=== PATIENT | male | born 1960 | race Caucasian/White ===

== ENCOUNTER 2017-09-19 19:06 | Emergency (ER) | payer SELFPAY ==
[~2017-09-19] VITALS: Ht 165.1 cm; Wt 65.8 kg
[~2017-09-19 19:06] MED LIST: ALBU6.7H IH; ASEN10TA9 SL; DEXL60CA2 PO; FOLI1TAB16 PO; METO25TA4 PO; SUCR1TAB35 PO; THIA100T8 PO; VORT10TA PO
[2017-09-19] MEDS ORDERED: methylPREDNISolone SOD SUCC PF 125 MG/2 ML VIAL. IV ONE (19:30)
[2017-09-19] MEDS ORDERED: IPRATRPIUM/ALBUTEROL 0.5/2.5MG 3 ML NEBU. NEB ONE (19:30)
[2017-09-19] MEDS ORDERED: IOHEXOL 300 MG/ML 75 ML VIAL. IV ONE (19:45)
[2017-09-19 19:57] LABS: BASO # 0.1 x10^3/uL (0.0-0.2); BASO % 1 % (0-3); EOS # 0.1 x10^3/uL (0.0-0.7); EOS % 1 % (0-3); HEMATOCRIT 39.6 % (39.0-53.0); HEMOGLOBIN 13.6 g/dL (13.0-17.5); LYMPH # 1.8 x10^3/uL (1.0-4.8); LYMPH % 21 % (24-48); MEAN CORPUSCULAR HEMOGLOBIN 31 pg (25-35); MEAN CORPUSCULAR HGB CONC 34 g/dL (31-37); MEAN CORPUSCULAR VOLUME 91 fL (79-100); MONO # 1.1 x10^3/uL (0.0-1.1); MONO % 13 % (0-9); NEUT # 5.3 x10^3uL (1.8-7.7); NEUT % 64 % (31-73); PLATELET COUNT 258 x10^3/uL (140-400); RED BLOOD COUNT 4.37 x10^6/uL (4.30-5.70); RED CELL DISTRIBUTION WIDTH 16.4 % (11.5-14.5); WHITE BLOOD COUNT 8.3 x10^3/uL (4.0-11.0)
[2017-09-19 20:23] LABS: ALBUMIN 3.8 g/dL (3.4-5.0); CALCIUM 9.5 mg/dL (8.5-10.1); GFR 76.7; POTASSIUM 4.1 mmol/L (3.5-5.1); TOTAL BILIRUBIN 0.3 mg/dL (0.2-1.0); TOTAL PROTEIN 7.8 g/dL (6.4-8.2)
--- NOTE | 2017-09-19 20:31 | PHYS DOC ---
Past History Past Medical History: Alcoholism, COPD, Depression, GERD, Hypertension, Hepatitis, Other Past Surgical History: Other Alcohol Use: Heavy Drug Use: None Adult General Chief Complaint Chief Complaint: SHORTNESS OF BREATH HPI HPI 57-year-old male patient with history of smoking and COPD states he was diagnosed with left lung mass 2 years ago and didn't follow-up with a physician. Patient complaining of chronic cough that getting worse for the last few days with clear and white sputum. Patient complaining of hemoptysis since last night that gradually getting worse. Patient complaining of shortness of breath and subjective fever and chills and losing weight. Patient is a poor historian. Review of Systems Review of Systems Constitutional: Reports subjective fever and chills[] Eyes: Denies change in visual acuity, redness, or eye pain [] HENT: There is a congestion and sore throat Respiratory: Reports cough and shortness of breath Cardiovascular: No additional information not addressed in HPI [] GI: Denies abdominal pain, bloody stools or diarrhea , reports nausea and vomiting after cough[] : Denies dysuria or hematuria [] Musculoskeletal: Denies back pain or joint pain [] Integument: Denies rash or skin lesions [] Neurologic: Denies headache, focal weakness or sensory changes [] Endocrine: Denies polyuria or polydipsia [] All other systems were reviewed and found to be within normal limits, except as documented in this note. Current Medications Current Medications Current Medications Medications (Trade) Dose Ordered Sig/Bo Start Time Stop Time Status Last Admin Dose Admin Albuterol/ Ipratropium (Duoneb) 3 ml 1X ONCE 09/19/17 19:30 09/19/17 19:32 DC 09/19/17 19:47 3 ML Iohexol (Omnipaque 300 Mg/ml) 75 ml 1X ONCE 09/19/17 19:45 09/19/17 19:46 DC 09/19/17 20:09 75 ML Methylprednisolone Sodium Succinate (SOLU-Medrol 125MG VIAL) 125 mg 1X ONCE 09/19/17 19:30 09/19/17 19:32 DC Allergies Allergies Allergies Coded Allergies Type Severity Reaction Last Updated Verified No Known Drug Allergies 03/06/15 No Physical Exam Physical Exam Constitutional: Moderate distress, non-toxic appearance, smell of alcohol on breath. [] HENT: Normocephalic, atraumatic, bilateral external ears normal, oropharynx moist, no oral exudates, nose normal. [] Eyes: PERRLA, EOMI, conjunctiva normal, no discharge. [] Neck: Normal range of motion, no tenderness, supple, no stridor. [] Cardiovascular: Tachycardia, no murmur [] Lungs & Thorax: Tachypnea with bibasilar arthritis and coughing dark bloody sputum Abdomen: Bowel sounds normal, soft, no tenderness, no masses, no pulsatile masses. [] Skin: Warm, dry, no erythema, no rash. [] Back: No tenderness, no CVA tenderness. [] Extremities: No tenderness, no cyanosis, no clubbing, ROM intact, no edema. [] Neurologic: Alert and oriented X 3, normal motor function, normal sensory function, no focal deficits noted. [] Psychologic: Affect anxious Current Patient Data Vital Signs Vital Signs Date Time Temp Pulse Resp B/P (MAP) Pulse Ox O2 Delivery O2 Flow Rate FiO2 09/19/17 19:48 98 Room Air 09/19/17 19:43 77 24 119/60 (79) 09/19/17 19:10 98.7 Lab Results Laboratory Tests Test 09/19/17 19:35 White Blood Count 8.3 x10^3/uL (4.0-11.0) Red Blood Count 4.37 x10^6/uL (4.30-5.70) Hemoglobin 13.6 g/dL (13.0-17.5) Hematocrit 39.6 % (39.0-53.0) Mean Corpuscular Volume 91 fL (79-100) Mean Corpuscular Hemoglobin 31 pg (25-35) Mean Corpuscular Hemoglobin Concent 34 g/dL (31-37) Red Cell Distribution Width 16.4 % (11.5-14.5) H Platelet Count 258 x10^3/uL (140-400) Neutrophils (%) (Auto) 64 % (31-73) Lymphocytes (%) (Auto) 21 % (24-48) L Monocytes (%) (Auto) 13 % (0-9) H Eosinophils (%) (Auto) 1 % (0-3) Basophils (%) (Auto) 1 % (0-3) Neutrophils # (Auto) 5.3 x10^3uL (1.8-7.7) Lymphocytes # (Auto) 1.8 x10^3/uL (1.0-4.8) Monocytes # (Auto) 1.1 x10^3/uL (0.0-1.1) Eosinophils # (Auto) 0.1 x10^3/uL (0.0-0.7) Basophils # (Auto) 0.1 x10^3/uL (0.0-0.2) Lactic Acid Level 2.6 mmol/L (0.4-2.0) H Troponin I Quantitative < 0.017 ng/mL (0-0.055) EKG EKG EKG interpreted by me. EKG at 1937 showed normal sinus rhythm at rate of 82, no acute extremity abnormalities.[] Radiology/Procedures Radiology/Procedures [][address] [address] IMAGING REPORT Signed PATIENT: LORI MULLINS ACCOUNT: [id number] : 1960 LOCATION: ER AGE: 57 SEX: M EXAM STATUS: PRE ER ORD. PHYSICIAN: VIDAL CAIN MD REASON: Shortness of breath, intoxication PROCEDURE: CT ANGIOGRAPHY CHEST PQRS Compliance Statement: One or more of the following individualized dose reduction techniques were utilized for this examination: 1. Automated exposure control 2. Adjustment of the mA and/or kV according to patient size 3. Use of iterative reconstruction technique CT angiography chest with contrast 09/19/2017 7:26 PM INDICATION: Shortness of breath COMPARISON: None available TECHNIQUE: Axial CT images of the chest were obtained after the intravenous administration of 75 cc Omnipaque 300. Coronal and sagittal reformats are provided. Maximum intensity projection images of the thoracic vasculature are provided. FINDINGS: The thyroid gland is normal in appearance. There are no pathologically enlarged axillary, mediastinal or hilar lymph nodes. The heart size is within normal limits. Trace pericardial fluid is present, likely physiologic. Thoracic aorta is normal in course and caliber. There is a moderate-sized hiatal hernia. There is masslike thickening at the gastroesophageal junction involving the distal one third of the esophagus. There may be paraesophageal varices or lymph nodes. There is adequate opacification of the pulmonary arterial system. There there are no filling defects within the pulmonary arterial system to suggest acute or chronic pulmonary embolus. 4 mm solid noncalcified pulmonary nodule is identified along the left major fissure (series 4, image 66). There are no pulmonary infiltrates. There are no pleural effusions. No pulmonary vascular congestion or pneumothorax. There is diffuse hepatic steatosis. No suspicious osseous lesions are identified. Minimal free fluid is noted in the upper abdomen. IMPRESSION: There is no evidence for acute or chronic pulmonary embolism. There is masslike thickening at the distal one third of the esophagus which may reflect a moderate hiatal hernia versus distal esophageal mass. There may be esophageal varices versus lymphadenopathy. Correlation with direct visualization may be of benefit. Fluid is identified posterior to the stomach adjacent to the spleen. Nonspecific 4 mm solid noncalcified pulmonary nodule is noted along the left major fissure. Electronically signed by: Magen Nash MD (09/19/2017 8:45 PM) [facility] DICTATED AND SIGNED BY: MAGEN NASH MD DATE: 09/19/172037 CC: VIDAL CAIN MD; PCP,NO ~ Course & Med Decision Making Course & Med Decision Making Pertinent Labs and Imaging studies reviewed. (See chart for details) Evaluation of patient in ER showed 57-year-old male patient complaining of hemoptysis and shortness of breath. Patient was afebrile but had tachycardia and are calling his breath. Labs showed blood of 320 and lactic acid of 2.6. Patient treated with IV fluid, vancomycin, Rocephin. CT of chest did not show lung mass or PE or infiltrate. Because of hemoptysis and history of alcohol abuse and COPD with chronic cough plan to transfer patient to [facility]. Dr. Iyer accepted admission at 2005. Dragon Disclaimer Dragon Disclaimer This electronic medical record was generated, in whole or in part, using a voice recognition dictation system. Departure Departure: Impression: Primary Impression: Hemoptysis Additional Impressions: Alcohol abuse Elevated lactic acid level COPD exacerbation Lung nodule seen on imaging study Disposition: XFER SHT-TRM HOSP ([facility] 2005) Condition: IMPROVED Referrals: PCP,NO (PCP) Problem Qualifiers VIDAL CAIN MD Sep 19, 2017 20:31
--- NOTE | 2017-09-19 20:49 | RAD ---
PQRS Compliance Statement: One or more of the following individualized dose reduction techniques were utilized for this examination: 1. Automated exposure control 2. Adjustment of the mA and/or kV according to patient size 3. Use of iterative reconstruction technique CT angiography chest with contrast 09/19/2017 7:26 PM INDICATION: Shortness of breath COMPARISON: None available TECHNIQUE: Axial CT images of the chest were obtained after the intravenous administration of 75 cc Omnipaque 300. Coronal and sagittal reformats are provided. Maximum intensity projection images of the thoracic vasculature are provided. FINDINGS: The thyroid gland is normal in appearance. There are no pathologically enlarged axillary, mediastinal or hilar lymph nodes. The heart size is within normal limits. Trace pericardial fluid is present, likely physiologic. Thoracic aorta is normal in course and caliber. There is a moderate-sized hiatal hernia. There is masslike thickening at the gastroesophageal junction involving the distal one third of the esophagus. There may be paraesophageal varices or lymph nodes. There is adequate opacification of the pulmonary arterial system. There there are no filling defects within the pulmonary arterial system to suggest acute or chronic pulmonary embolus. 4 mm solid noncalcified pulmonary nodule is identified along the left major fissure (series 4, image 66). There are no pulmonary infiltrates. There are no pleural effusions. No pulmonary vascular congestion or pneumothorax. There is diffuse hepatic steatosis. No suspicious osseous lesions are identified. Minimal free fluid is noted in the upper abdomen. IMPRESSION: There is no evidence for acute or chronic pulmonary embolism. There is masslike thickening at the distal one third of the esophagus which may reflect a moderate hiatal hernia versus distal esophageal mass. There may be esophageal varices versus lymphadenopathy. Correlation with direct visualization may be of benefit. Fluid is identified posterior to the stomach adjacent to the spleen. Nonspecific 4 mm solid noncalcified pulmonary nodule is noted along the left major fissure. Electronically signed by: Gaviota Julio MD (09/19/2017 8:45 PM) [facility]
[2017-09-19] MEDS ORDERED: VANCOMYCIN 1 GM in IV NORMAL SALINE 250ML 250 ML IV ONE (21:00)
[2017-09-19] MEDS ORDERED: VANCOMYCIN 1.75 GM in IV NORMAL SALINE 500ML 500 ML IV ONE (21:00)
[2017-09-19] MEDS ORDERED: cefTRIAXone IV Push 1 GM VIAL. IVP ONE (21:00)
[2017-09-19] MEDS ORDERED: IV NORMAL SALINE 1,000ML 1,000 ML IV ONE (21:00)
[2017-09-19 21:04] LABS: BARBITURATES NEG (NEG); BENZODIAZEPINES NEG (NEG); CANNABINOIDS NEG (NEG); COCAINE NEG (NEG); METHADONE NEG (NEG); OPIATES NEG (NEG); PHENCYCLIDINE NEG (NEG)
[2017-09-19 21:05] LABS: AMPHETAMINE/METHAMPHETAMINE NEG (NEG)
[2017-09-19] MEDS ORDERED: IV NORMAL SALINE 500ML 500 ML ONE (21:24)
[2017-09-19] MEDS ORDERED: VANCOMYCIN 1 GM VIAL. ONE ×2 (21:24→21:35)
[2017-09-19 21:26] LABS: BACTERIA,URINE 0 /HPF (0-FEW); BILIRUBIN,URINE NEG (NEG); CLARITY,URINE CLEAR; COLOR,URINE YELLOW; GLUCOSE,URINE NEG (NEG); NITRITE,URINE NEG (NEG); RBC,URINE 0 /HPF (0-2); SQUAMOUS EPITHELIAL CELL,UR FEW /LPF; UROBILINOGEN,URINE 0.2 mg/dL (0.2 mg/dL); WBC,URINE 0 /HPF (0-4)
[2017-09-19 21:54] VITALS: BP 117/46
--- NOTE | 2017-09-20 06:54 | EKG ---
[address] [address] Test Date: 2017-09-19 Test Time: 19:37:02 Pat Name: [facility] Department: Room: Gender: M Career Technical Supervisor: : 1960 Requested By: VIDAL CAIN Order Number: [id number] Reading MD: Measurements Intervals [place] Rate: 82 P: 51 CA: 132 QRS: 2 QRSD: 94 T: 23 QT: 350 QTc: 412 Interpretive Statements SINUS RHYTHM NO SPECIFIC ECG ABNORMALITIES RI6.01 Unconfirmed report No previous ECG available for comparison
== END 2017-09-19 22:31 | disposition short-term general hospital (02) ==
LOC: ER 19:06
DX: J44.1 Chronic obstructive pulmonary disease with (acute) exacerbation (principal); R04.2 Hemoptysis; R11.2 Nausea with vomiting, unspecified; R91.1 Solitary pulmonary nodule; F10.20 Alcohol dependence, uncomplicated; F32.9 Major depressive disorder, single episode, unspecified; K21.9 Gastro-esophageal reflux disease without esophagitis; I10 Essential (primary) hypertension; R74.0 Nonspecific elevation of levels of transaminase and lactic acid dehydrogenase [LDH]
CPT/HCPCS: 36415; 71275; 80053; 80307; 81001; 82553; 83605; 83880; 84484; 85025; 85610; 85730; 87040; 93005; 94640; 96361; 96365; 96375; 99285; G0480; J0696; J2930; J3370; J7040; J7620; Q9967; G0479; J7030

== ENCOUNTER 2018-04-21 14:10 | Emergency (ER) | payer SELFPAY ==
[~2018-04-21] VITALS: Ht 165.1 cm; Wt 68.0 kg
[~2018-04-21 14:10] MED LIST changes: +ALBU2.5V8 IH; -ALBU6.7H IH
[2018-04-21] MEDS ORDERED: IV NORMAL SALINE 1,000ML 1,000 ML IV ONE (14:30)
--- NOTE | 2018-04-21 14:38 | PHYS DOC ---
Past History Past Medical History: Alcoholism, COPD, Depression, GERD, Hypertension, Hepatitis, Other Past Surgical History: Other Alcohol Use: Heavy Drug Use: None Adult General Chief Complaint Chief Complaint: NAUSEA/VOMITING/DIARRHEA HPI HPI 57-year-old male presents with 2 day history of vomiting. The patient has seen blood in the vomit. He had an EGD 3 days ago where he was only found a couple of masses. They took biopsies at that time. Starting yesterday, the patient has had vomiting and has been unable to keep anything down. He has been unable to take his blood pressure medication. He is now quite hypertensive. He is feeling weak overall. There is blood in the vomit, but it is not all blood. He denies fever or chills. He was not placed on any PPI after his EGD. Review of Systems Review of Systems Constitutional: Denies fever or chills [] Eyes: Denies change in visual acuity, redness, or eye pain [] HENT: Denies nasal congestion or sore throat [] Respiratory: Cough with shortness of breath[] Cardiovascular: No additional information not addressed in HPI [] GI: Epigastric abdominal pain, nausea, vomiting. Denies bloody stools or diarrhea [] : Denies dysuria or hematuria [] Musculoskeletal: Denies back pain or joint pain [] Integument: Denies rash or skin lesions [] Neurologic: Denies headache, focal weakness or sensory changes [] Endocrine: Denies polyuria or polydipsia [] All other systems were reviewed and found to be within normal limits, except as documented in this note. Current Medications Current Medications Current Medications Medications (Trade) Dose Ordered Sig/[facility] Start Time Stop Time Status Last Admin Dose Admin Clonidine HCl (Catapres) 0.2 mg 1X ONCE 04/21/18 14:45 04/21/18 14:46 Ondansetron HCl (Zofran) 4 mg 1X ONCE 04/21/18 14:45 04/21/18 14:46 Pantoprazole Sodium (Protonix Vial) 80 mg 1X ONCE 04/21/18 14:45 04/21/18 14:46 Sodium Chloride 1,000 ml @ 1,000 mls/hr 1X ONCE 04/21/18 14:30 04/21/18 15:29 Allergies Allergies Allergies Coded Allergies Type Severity Reaction Last Updated Verified No Known Drug Allergies 03/06/15 No Physical Exam Physical Exam Constitutional: Well developed, well nourished, no acute distress, non-toxic appearance. [] HENT: Normocephalic, atraumatic, bilateral external ears normal, oropharynx moist, no oral exudates, nose normal. [] Eyes: PERRLA, EOMI, conjunctiva normal, no discharge. [] Neck: Normal range of motion, no tenderness, supple, no stridor. [] Cardiovascular:Heart rate regular rhythm, no murmur [] Lungs & Thorax: Bilateral breath sounds clear to auscultation [] Abdomen: Epigastric tenderness[] Skin: Warm, dry, no erythema, no rash. [] Back: No tenderness, no CVA tenderness. [] Extremities: No tenderness, no cyanosis, no clubbing, ROM intact, no edema. [] Neurologic: Alert and oriented X 3, normal motor function, normal sensory function, no focal deficits noted. [] Psychologic: Affect normal, judgement normal, mood normal. [] Current Patient Data Vital Signs Vital Signs Date Time Temp Pulse Resp B/P (MAP) Pulse Ox O2 Delivery O2 Flow Rate FiO2 04/21/18 14:29 98.2 104 18 98 Room Air EKG EKG [] Radiology/Procedures Radiology/Procedures [] Course & Med Decision Making Course & Med Decision Making Pertinent Labs and Imaging studies reviewed. (See chart for details) [] Dragon Disclaimer Dragon Disclaimer This electronic medical record was generated, in whole or in part, using a voice recognition dictation system. Departure Departure: Impression: Primary Impression: Abdominal mass Additional Impressions: Hematemesis Epigastric abdominal pain Disposition: 01 HOME, SELF-CARE Condition: IMPROVED Referrals: PCP,NO (PCP) Patient Instructions: Hematemesis Scripts Ondansetron (ONDANSETRON ODT) 4 Mg Tab.rapdis 1 TAB PO PRN Q6-8HRS PRN for VOMITING, #16 TAB Prov: JERED KEARNS DO 04/21/18 Hydrocodone Bit/Acetaminophen (NORCO 5-325 TABLET) 1 Each Tablet 1 TAB PO PRN Q6HRS PRN for PAIN, #14 TAB 0 Refills Prov: JERED KEARNS DO 04/21/18 Problem Qualifiers Primary Impression: Abdominal mass Abdominal location: epigastric Qualified Codes: R19.06 - Epigastric swelling , mass or lump Additional Impressions: Hematemesis Nausea presence: with nausea Qualified Codes: K92.0 - Hematemesis JERED KEARNS DO Apr 21, 2018 14:38
[2018-04-21 14:43] LABS: BASO # 0.1 x10^3/uL (0.0-0.2); BASO % 0 % (0-3); EOS % 0 % (0-3); HEMATOCRIT 42.1 % (39.0-53.0); HEMOGLOBIN 14.4 g/dL (13.0-17.5); LYMPH # 1.1 x10^3/uL (1.0-4.8); LYMPH % 6 % (24-48); MEAN CORPUSCULAR HEMOGLOBIN 31 pg (25-35); MEAN CORPUSCULAR HGB CONC 34 g/dL (31-37); MEAN CORPUSCULAR VOLUME 90 fL (79-100); MONO # 0.9 x10^3/uL (0.0-1.1); MONO % 5 % (0-9); NEUT # 14.6 x10^3uL (1.8-7.7); NEUT % 88 % (31-73); PLATELET COUNT 456 x10^3/uL (140-400); RED BLOOD COUNT 4.69 x10^6/uL (4.30-5.70); RED CELL DISTRIBUTION WIDTH 13.9 % (11.5-14.5); WHITE BLOOD COUNT 16.6 x10^3/uL (4.0-11.0)
[2018-04-21] MEDS ORDERED: ONDANSETRON PF 4 MG/2 ML VIAL. IV ONE (14:45)
[2018-04-21] MEDS ORDERED: cloNIDine HCL 0.1 MG TABLET PO ONE (14:45)
[2018-04-21] MEDS ORDERED: PANTOPRAZOLE IV 40 MG VIAL. IVP ONE (14:45)
[2018-04-21 14:51] LABS: ALBUMIN 4.2 g/dL (3.4-5.0); CALCIUM 10.3 mg/dL (8.5-10.1); CREATININE 1.2 mg/dL (0.7-1.3); GFR 62.2; POTASSIUM 3.4 mmol/L (3.5-5.1); TOTAL BILIRUBIN 0.5 mg/dL (0.2-1.0); TOTAL PROTEIN 8.5 g/dL (6.4-8.2)
[2018-04-21 15:09] LABS: GASTRIC OB PAT POSITIVE (NEG)
[2018-04-21] MEDS ORDERED: IOHEXOL 300 MG/ML 75 ML VIAL. IV ONE (16:30)
[2018-04-21] MEDS ORDERED: HYDROmorphone PF 1 MG/ML DISP.SYRIN IV ONE (16:30)
--- NOTE | 2018-04-21 18:07 | RAD ---
CT scan of the abdomen and pelvis with contrast 04/21/2018 CLINICAL HISTORY: Abdominal, vomiting and hematemesis. TECHNIQUE: After the intravenous administration of 75 cc of Omnipaque 300, contiguous, 5 mm axial sections were obtained through the abdomen and pelvis. One or more of the following individualized dose reduction techniques were utilized for this study: 1. Automated exposure control. 2. Adjustment of the mA and/or kV according to patient size. 3. Use of iterative reconstruction technique. FINDINGS: Images through the lung bases demonstrate minimal dependent subsegmental atelectasis bilaterally. A large irregular mass is seen involving the visualized portions of the distal thoracic esophagus extending to the GE junction/gastric cardia. The superior extent of this mass is not included on this study. This mass measures at least 13 x 8.8 x 5.3 cm in craniocaudal, transverse and AP dimensions. This is concerning for a neoplastic process enlarged. Surrounding lymph nodes are seen within the inferior mediastinum and upper abdomen. These measure 1 to 2 cm in size. The liver, pancreas, adrenal glands and kidneys are within normal limits. A 1 cm rounded low-attenuation lesion is seen involving the inferior aspect of the spleen which likely represents a cyst. Atherosclerotic calcification abdominal aorta and its branches is noted. The abdominal aorta tapers normally. The gallbladder is slightly contracted. No free fluid or free air is seen within the abdomen. There is no evidence of bowel obstruction. Prominent retroperitoneal lymph nodes are seen which measure 1 to 2.1 cm in size. Images through the pelvis demonstrate the urinary bladder distended with urine. Calcifications are seen within the pelvis consistent with phleboliths. No free fluid is seen. Diverticula are seen involving the sigmoid colon. No inflammatory changes are seen in the adjacent fat. Degenerative changes are seen involving lower thoracic and throughout the lumbar spine and both hips. IMPRESSION: A large irregular mass is seen involving the visualized portions of the distal thoracic esophagus extending to the GE junction/gastric cardia. This measures at least 13 cm in greatest diameter. It is concerning for a neoplastic process (esophageal carcinoma, etc.). Electronically signed by: Enmanuel Medrano MD (04/21/2018 6:04 PM) [facility]
[2018-04-21] MEDS ORDERED: HYDR-3165 PO (18:20)
[2018-04-21] MEDS ORDERED: ONDA4TAB12 PO (18:20)
[2018-04-21 18:40] VITALS: BP 168/87
[2018-04-21] MEDS ORDERED: HYDROcodone/APAP 5/325MG 1 TAB TABLET PO ONE (19:00)
[2018-04-21 21:34] LABS: % LYMPHS 8 % (24-48); % MONOS 6 % (0-10); % SEGS 86 % (35-66); PLT ESTIMATE INCREASED (ADEQUATE); POLYCHROMASIA SLIGHT
== END 2018-04-21 18:53 | disposition home or self-care (01) ==
LOC: ER 14:10
DX: R19.06 Epigastric swelling, mass or lump (principal); K92.0 Hematemesis; R11.2 Nausea with vomiting, unspecified; J44.9 Chronic obstructive pulmonary disease, unspecified; F32.9 Major depressive disorder, single episode, unspecified; K21.9 Gastro-esophageal reflux disease without esophagitis; I10 Essential (primary) hypertension; F10.20 Alcohol dependence, uncomplicated; Y90.9 Presence of alcohol in blood, level not specified
CPT/HCPCS: 36415; 74177; 80053; 82271; 83690; 85007; 85025; 96361; 96374; 96375; 99284; C9113; J1170; J2405; Q9967; J7030

== ENCOUNTER → 2019-02-03 | Outpatient (CLI) | payer OTHER ==
[~2019-02-03] MED LIST changes: +HYDR-3165 PO; +ONDA4TAB12 PO
--- NOTE | 2019-02-03 11:09 | RAD ---
Complete abdomen ultrasound study Clinical indications: Abdominal pain. COMPARISON: CT study of the abdomen dated April 21, 2018. FINDINGS: Midline structures including the pancreas and abdominal aorta and IVC are poorly visualized due to overlying bowel gas. The intrahepatic portion IVC is patent. No focal aneurysmal dilatation of the distal abdominal aorta is seen. The liver measures 14.5 centers in length which is normal. No focal hepatic mass is seen otherwise. The gallbladder is normal and no gallstones are seen. The extra hepatic bile that measures 3 mm in caliber which is normal. The bridge attacher questioned possible lymph node at the gallbladder neck. This measures 13 mm. Lymph node could be seen in this area on the previous CT study and is unchanged in size. The CT study demonstrated a large distal esophageal mass extending into the gastric cardia. The length of the right kidney is 10.2 cm and the length of the left kidney is 10.4 centimeters. No hydronephrosis or renal mass or perinephric fluid collection seen on either side. The spleen measures 7.4 cm in length which is normal. No ascites is seen. IMPRESSION: No significant change in size of lymph node within the xochitl hepatis measuring 13 mm. No hepatic metastasis is seen sonographically. Normal sonographic evaluation of the gallbladder. Electronically signed by: Romulo Quach MD (02/03/2019 11:06 AM) [facility]
== END | disposition home or self-care (01) ==
LOC: PMG 09:51
PROVIDERS: ATTEND Registered Nurse
DX: R10.9 Unspecified abdominal pain (principal)
CPT/HCPCS: 76700

== ENCOUNTER → 2019-02-20 | Outpatient (CLI) | payer OTHER ==
--- NOTE | 2019-02-20 14:17 | RAD ---
PA and lateral chest x-ray compared to similar study dated June 15, 2015 for COPD. FINDINGS: There is a small chronic scar or pleural effusion at the left lung base, grossly unchanged. Calcified granuloma seen in the right upper lung. No pneumothorax, congestive heart failure, or focal parenchymal abnormalities evident. Heart size within normal limits. 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 IMPRESSION: 1. No acute cardiopulmonary abnormality. Small stable scar or pleural effusion at the left lung base. Electronically signed by: Shawn Reyna MD (02/20/2019 2:14 PM) [facility]
== END | disposition home or self-care (01) ==
LOC: PMG 13:53
PROVIDERS: ATTEND Registered Nurse
DX: J44.9 Chronic obstructive pulmonary disease, unspecified (principal); J84.10 Pulmonary fibrosis, unspecified
CPT/HCPCS: 71046

== ENCOUNTER → 2019-03-04 | Outpatient (CLI) | payer OTHER ==
[~2019-03-04] MED LIST changes: +IOHEXOL 240 MG/ML 50ML VIAL. ONE; +IOHEXOL 300 MG/ML 75 ML VIAL. IV ONE
--- NOTE | 2019-03-04 12:40 | RAD ---
PQRS Compliance Statement: One or more of the following individualized dose reduction techniques were utilized for this examination: 1. Automated exposure control 2. Adjustment of the mA and/or kV according to patient size 3. Use of iterative reconstruction technique CT abdomen/pelvis with contrast 03/04/2019 9:30 AM INDICATION: Abdominal pain COMPARISON: CT abdomen/pelvis 04/21/2018 TECHNIQUE: Multiple axial CT images of the abdomen and pelvis were obtained after the intravenous administration . Coronal and sagittal reformats are provided. FINDINGS: Lung bases are clear. Heart size is within normal limits. Liver, bilateral adrenal glands and gallbladder are normal in appearance. Interval decrease in size of a cystic lesion in the inferior spleen measuring 4.5 mm, previously measuring 10 mm, nonspecific. Calcifications within the spleen may represent sequela prior granulomatous exposure. Oral contrast was administered. Interval decrease in eccentric wall thickening involving the distal esophagus and gastroesophageal junction. Persistent cystic changes are identified along the gastric cardia with gastric collateral vascularity and esophageal varices. Moderate sigmoid diverticulosis. Opacified bowel loops demonstrate normal mucosal fold pattern. Small and large bowel are normal in caliber. There is no evidence for bowel obstruction. There are no pericolonic inflammatory changes. A normal, nondilated appendix is visualized without adjacent inflammatory changes. Portacaval lymph node has decreased in size now measuring 9 mm by short axis, previously measuring 18 mm. No new or enlarging abdominal or pelvic lymph nodes. There is a 3 mm nonobstructing calculus in interpolar left kidney. The kidneys enhance symmetrically. There is no suspicious renal mass. There is no hydronephrosis. There are no suspected calculi within the kidneys, ureters or urinary bladder. Urinary bladder is within normal limits given degree of distention. Prostate and seminal vesicles are normal in appearance. There is minimal height loss involving L1 with 25% height loss, stable from 04/21/2018. IMPRESSION: 1. Interval decreased prominence of distal esophageal eccentric wall thickening with improving gastric and esophageal varices. No new or enlarging abdominal or pelvic lymphadenopathy. 2. Decrease in size of cystic lesion in the inferior spleen previously measuring 10 mm and currently measuring 4.5 mm. Consideration may be given for metastatic lesion although cystic lesion such as lymphangioma or hemangioma may have similar appearance. No definite hepatic metastatic disease is visualized on this examination. Electronically signed by: Gaviota Julio MD (03/04/2019 12:37 PM) [place] [id number]
== END | disposition home or self-care (01) ==
LOC: CT 08:23
PROVIDERS: ATTEND Registered Nurse
DX: I85.00 Esophageal varices without bleeding (principal); K57.30 Diverticulosis of large intestine without perforation or abscess without bleeding; N20.0 Calculus of kidney; D73.89 Other diseases of spleen
CPT/HCPCS: 74177; Q9967

== ENCOUNTER → 2019-05-07 | Outpatient (CLI) | payer OTHER ==
[~2019-05-07] MED LIST changes: -IOHEXOL 240 MG/ML 50ML VIAL. ONE; -IOHEXOL 300 MG/ML 75 ML VIAL. IV ONE
--- NOTE | 2019-05-07 13:11 | RAD ---
CT chest without contrast PQRS statement: CT scans at this facility use dose reduction including either automated exposure control, iterative reconstructions, and /or weight based radiation dosing via mA and kV modification when appropriate to reduce radiation dose to as low as reasonably achievable. HISTORY: Shortness of breath. History of tobacco smoking. COMPARISON: CT chest September 19, 2017. FINDINGS: There is masslike thickening and marked stranding of the distal fat surrounding the lower esophagus leading to the gastric esophageal junction and gastric cardia and fundus where there is also upper abdominal fat stranding, this is similar however to CT imaging in February 2019 and the thickening of the esophagus has mildly decreased from older imaging in 2018. Heart size normal. Extensive left coronary calcified plaque. Pulmonary vessels and aorta are unremarkable. No enlarged adenopathy in the chest. There is mild bilateral gynecomastia. Calcified granulomas within the right chest. 2 mm medial subpleural nodule right lower lobe image 60 is new. Mild linear thickening of the right major fissure are stable likely scarring thickness of 2 mm. Mild atelectasis or scarring of the lateral basal left lower lobe adjacent diaphragm stable from February 2019, new from 2018. 2 adjacent 3 mm nodule left lower lobe near the major fissure images 61-62 are stable to 2018. 2 mm nodules left lower lobe images 51-50 to have decreased in 2018. No pleural effusions. Bones are unremarkable. Thoracic disc osteophytes. IMPRESSION: 1. No acute cardiopulmonary process. 2. Prominent wall thickening and surrounding fat stranding of the lower esophagus at the mediastinum as well as the gastroesophageal junction and gastric fundus and cardia at the upper abdomen. This is similar to CT imaging from February 2019 and has decreased relative to the study from 2018, which may indicate chronic/recurrent esophagitis or some partial treatment response for esophageal malignancy. 3. 2 mm right lower lobe pulmonary solid nodule new from prior imaging, consider optional CT follow-up in 12 months to document stability per Fleischner guidelines. Other pulmonary nodules are stable from 2018 considered benign. 4. Extensive left coronary calcified plaque. Electronically signed by: Zana Renee MD (05/07/2019 1:08 PM) [id number]
== END | disposition home or self-care (01) ==
LOC: CT 10:54
PROVIDERS: ATTEND Internal Medicine Pulmonary Disease
DX: J84.10 Pulmonary fibrosis, unspecified (principal); R91.8 Other nonspecific abnormal finding of lung field; I25.10 Atherosclerotic heart disease of native coronary artery without angina pectoris; N62 Hypertrophy of breast
CPT/HCPCS: 71250

== ENCOUNTER 2019-09-21 17:16 | Emergency (ER) | payer SELFPAY ==
[~2019-09-21] VITALS: Ht 165.1 cm; Wt 62.1 kg
[2019-09-21 17:25] VITALS: BP 139/91
--- NOTE | 2019-09-21 17:39 | RAD ---
Right hand 3 views 09/21/2019. Reason for exam: Injury. No acute fracture or dislocation is seen. There are mild arthritic changes at interphalangeal joints and MCP joints. No foreign body is seen. IMPRESSION: No identified acute abnormality. Electronically signed by: Jesus Ruiz Jr., MD (09/21/2019 5:36 PM) [facility]
--- NOTE | 2019-09-21 17:43 | PHYS DOC ---
Past History Past Medical History: Alcoholism, COPD, Depression, GERD, Hypertension, Hepatitis, Other Past Surgical History: Other Alcohol Use: Heavy Drug Use: None Adult General Chief Complaint Chief Complaint: HAND PROBLEM HPI HPI Patient is a 59-year-old male who presents with right hand pain. This occurred yesterday evening after patient punched the wall in frustration. Patient reports living in a unstable home environment full of drug activity and other illegal activity which has caused him to be frustrated and stressed out prompting him to hit wall in frustration. Patient presents today due to ongoing pain of base of right wrist. Denies any motor or sensory changes. Patient is able to perform activities of daily living but given ongoing pain, patient presented to our ED for further evaluation Review of Systems Review of Systems Fourteen body systems of review of systems have been reviewed. See HPI for pertinent positives and negative responses, other keller all other systems are negative, non-pertinent or non-contributory Allergies Allergies Allergies Coded Allergies Type Severity Reaction Last Updated Verified No Known Drug Allergies 03/06/15 No Physical Exam Physical Exam Constitutional: Well developed, well nourished, no acute distress, non-toxic appearance. [] HENT: Normocephalic, atraumatic, bilateral external ears normal, oropharynx moist, no oral exudates, nose normal. [] Eyes: PERRLA, EOMI, conjunctiva normal, no discharge. [] Neck: Normal range of motion, no tenderness, supple, no stridor. [] Cardiovascular:Heart rate regular rhythm, no murmur [] Lungs & Thorax: Bilateral breath sounds clear to auscultation [] Abdomen: Bowel sounds normal, soft, no tenderness, no masses, no pulsatile masses. [] Skin: Warm, dry, no erythema, no rash. [] Back: No tenderness, no CVA tenderness. [] Extremities: No cyanosis, no clubbing, ROM intact, no edema. Documentation below for bilateral hands unless otherwise noted Index F: FDS, FDP, extension intact with PROM against resistance. No pain on m ovement. RDN/UDN intact. 2 pt discrimination intact. CR < 2s. Soft compartment. No gross deformity. Middle F: FDS, FDP, extension intact with PROM against resistance. No pain on movement. RDN/UDN intact. 2 pt discrimination intact. CR < 2s. Soft compartment. No gross deformity Ring F: FDS, FDP, extension intact with PROM against resistance. No pain on movement. RDN/UDN intact. 2 pt discrimination intact. CR < 2s. Soft compartment. No gross deformity Short F: FDS, FDP, extension intact with PROM against resistance. No pain on movement. RDN/UDN intact. 2 pt discrimination intact. CR < 2s. Soft compartment. No gross deformity Thumb: FPL, EPL, EPB, APL intact per routine. RDN/UDN intact per routine. CR < 2s. No gross deformity. Compartments soft. Anatomical snuffbox tenderness with palpation [] Neurologic: Alert and oriented X 3, normal motor function, normal sensory function, no focal deficits noted. [] Psychologic: Affect normal, judgement normal, mood normal. [] EKG EKG [] Radiology/Procedures Radiology/Procedures PROCEDURE: HAND RIGHT 3V Right hand 3 views 09/21/2019. Reason for exam: Injury. No acute fracture or dislocation is seen. There are mild arthritic changes at interphalangeal joints and MCP joints. No foreign body is seen. IMPRESSION: No identified acute abnormality. Electronically signed by: Jesus Ruiz Jr., MD (09/21/2019 5:36 PM) [facility] Course & Med Decision Making Course & Med Decision Making Patient seen by myself on immediate ED arrival Comprehensive history and physical exam obtained, pertinent imaging studies ordered and reviewed Despite negative radiographs of right hand and wrist, great concern for potential scaphoid fracture given physical exam findings This diagnosis was discussed at length with patient with good understanding. Joint decision to treat as such with close outpatient PCP follow-up for further care Patient placed in thumb spica splint and educated on supportive care practices such as taking NSAIDs for as needed pain control, and rice Patient has previously scheduled PCP follow-up this upcoming , I advised him to discuss this diagnosis and discussed need for repeat radiographs in upcoming 2 to 3 weeks with consideration for outpatient orthopedic follow-up Patient understood plan of care, he was educated on strict return precautions with good understanding, all questions and concerns addressed prior to ED depart adi Syed Disclaimer [employer] Disclaimer This electronic medical record was generated, in whole or in part, using a voice recognition dictation system. Departure Departure: Impression: Primary Impression: Right hand pain Disposition: 01 HOME/RESIDENCE PRIOR TO ADM Condition: STABLE Referrals: PCP,NO (PCP) Patient Instructions: RICE - Routine Care for Injuries, Scaphoid Fracture, Wrist Additional Instructions: As discussed prior to ER departure, our x-ray of your right hand today showed no bone breaks Nonetheless, also discussed with you, a certain bone called the scaphoid bone is at high risk for fracture despite not showing up on x-ray A splint was applied to your right hand prior to discharge with instructions to follow-up with your PCP as previously scheduled this upcoming We recommend outpatient follow-up with the hand surgeon; however, if this is unavailable we recommend a wrist x-ray be obtained in the next 2 to 3 weeks after initial injury to assess for fracture Immobilization via splint may be required for at least 6 to 12 weeks. Because of this, it is important to discuss your visit today with your PCP at follow-up! Scripts Ibuprofen (IBUPROFEN) 800 Mg Tablet 1 TAB PO TID for Pain, #45 TAB 1 Refill Prov: BRYAN FORMAN DO 09/21/19 Justification of Admission: Justification of Admission: Justification of Admission Dx: N/A BRYAN FORMAN DO Sep 21, 2019 17:43
[2019-09-21] MEDS ORDERED: IBUP800T19 PO (17:57)
== END 2019-09-21 18:15 | disposition home or self-care (01) ==
LOC: ER 17:16
DX: M79.641 Pain in right hand (principal); G89.11 Acute pain due to trauma; J44.9 Chronic obstructive pulmonary disease, unspecified; K21.9 Gastro-esophageal reflux disease without esophagitis; I10 Essential (primary) hypertension; F10.20 Alcohol dependence, uncomplicated; Y90.9 Presence of alcohol in blood, level not specified; W22.01XA Walked into wall, initial encounter; Y93.89 Activity, other specified; Y92.89 Other specified places as the place of occurrence of the external cause; Y99.8 Other external cause status
CPT/HCPCS: 29125; 73130; 99283

== ENCOUNTER → 2020-06-29 | Outpatient (CLI) | payer OTHER ==
[~2020-06-29] MED LIST changes: +IBUP800T19 PO
--- NOTE | 2020-06-29 14:23 | RAD ---
CT THORAX WO History: COPD, INCREASED DYSPNEA, ABNORMAL CXR, QUIT SMOKING X 6 MOS AGO Comparison: CT chest 05/07/2019 Technique: Noncontrast CT of the chest. Findings: Assessment is limited by lack of IV contrast. Aorta and great vessels: No aneurysm of the aortic arch or thoracic aorta is seen. Mild atherosclerot ic calcification. Thyroid: No significant abnormalities. Mediastinum and joanna: No mediastinal masses or adenopathy is seen. Esophagus: Distal esophageal wall thickening and paraesophageal varices. Heart: The heart is normal in size. There is no pericardial effusion. Heavy coronary artery calcifica tion. Trachea: The visualized tracheobronchial tree is normal. Lungs: New irregular 2.5 cm zone of groundglass opacity in the right upper lobe (axial image 86). A p ersistent 4 mm calcified granuloma is adjacent to this region of groundglass opacity. Left basilar at electatic scarring. 4 mm right middle lobe nodule. Pleural space: There is no pneumothorax or pleural effusion. Upper abdomen: Hypodensity liver compatible with steatosis. Extensive gastric and left upper quadrant varices. Osseous structures and soft tissues: Bilateral gynecomastia. Multilevel degenerative changes of thora cic spine with prominent marginal osteophytes. Impression: 1. New right upper lobe 2.5 cm on of groundglass opacity may represent infectious or inflammatory pr ocess. Early malignancy is not excluded. Recommend 3 month follow-up CT to evaluate for resolution. 2. Again, redemonstrated is thickening and inflammatory changes of the distal esophagus and gastroes ophageal junction with surrounding gastric and esophageal varices. 3. Hepatic steatosis. 4. Heavy coronary artery calcification. ------ Exposure: One or more of the following individualized dose reduction techniques were utilized for thi s examination: 1. Automated exposure control 2. Adjustment of the mA and/or kV according to patient size 3. Use of iterative reconstruction technique. Electronically signed by: Dwain Snider MD (06/29/2020 2:21 PM) [facility]
== END ==
LOC: CT 10:49
PROVIDERS: ATTEND Internal Medicine Pulmonary Disease
DX: J44.9 Chronic obstructive pulmonary disease, unspecified (principal); K76.0 Fatty (change of) liver, not elsewhere classified; I25.10 Atherosclerotic heart disease of native coronary artery without angina pectoris
CPT/HCPCS: 71250